=== PATIENT | female | born 1940 | race Caucasian/White ===

== ENCOUNTER 2016-11-15 12:47 | Emergency (ER) | payer OTHER ==
[~2016-11-15 12:47] MED LIST: AMLODIPINE5 MG PO; APAP/HYDROCODON1 T13 PO; APR25 PO; BAY PO; BG MC; CARVEDILOL12.5 MG PO; CARVEDILOL25 M1 PO; COL100 PO; COREG12.5 MG PO; COUMADIN2 MG PO; FERL PO; FLUOXETINE10 MG PO; HEP5I SC; LANTI SQ; LEVEMIR100 U/M1 SQ; NEP PO; NEPHRO-VITE1 TA1 PO; NEU300 PO; NIT0.4 SL; NOR5 PO; PRI20 PO; PROZ10 PO; PROZ20 PO; RENVELA800 MG PO; SIMVASTATIN40 MG PO; SORBITRATE PO; THERAGRAN-M1 TA4 PO; WARFARIN SODIUM5 MG PO; WARFARIN4 M1 PO; ZES10 PO; ZOFI IV
[2016-11-15 15:07] LABS: BASOPHIL % 1.7 % (0-2); PLATELET COUNT 256 x10^3mcL (130-400)
[2016-11-15 15:10] LABS: RED CELL DISTRIBUTION WIDTH 16.4 % (11.5-14.5)
[2016-11-15 15:27] LABS: ALKALINE PHOSPHATASE 111 U/L (46-116); ALT/SGPT 12 U/L (14-59); AST/SGOT 12 U/L (15-37); BILIRUBIN TOTAL 0.4 mg/dL (0.20-1.00); CALCIUM 8.4 mg/dL (8.5-10.1); CARBON DIOXIDE 33.3 mmol/L (21-32); CHLORIDE SERUM 99 mmol/L (98-107); CHOLESTEROL 141 mg/dL (<200); GLUCOSE SERUM 245 mg/dL (74-106); HDL CHOLESTEROL 41 mg/dL (40-60); SODIUM SERUM 136 mmol/L (136-145); URIC ACID 4.4 mg/dL (2.6-6.0)
[2016-11-15 15:30] LABS: ALBUMIN 3.2 g/dL (3.4-5.0)
[2016-11-15 15:32] LABS: CREATININE SERUM 5.9 mg/dL (0.6-1.0); POTASSIUM SERUM 5.8 mmol/L (3.5-5.1)
[2016-11-15 17:31] LABS: CHOLESTEROL/HDL RATIO 3.7; MAGNESIUM 2.5 mg/dL (1.8-2.4)
[2016-11-15 17:41] VITALS: BP 183/87
[2016-11-15 17:42] LABS: FREE T4 1.09 ng/dL (0.76-1.46); FREE THYROXINE INDEX 2.5 ug/dL (1.4-4.5); T4(THYROXINE) 6.8 ug/dL (4.7-13.3)
[2016-11-16 14:17] LABS: T3 TOTAL 0.72 ng/mL
== END 2016-11-15 17:42 | disposition left against medical advice (07) ==
LOC: ED 12:47 → DU 16:16 → ED 17:42
PROVIDERS: Emergency Medicine; Family Medicine
DX: S09.90XA Unspecified injury of head, initial encounter (principal); R55 Syncope and collapse; E87.5 Hyperkalemia; E11.22 Type 2 diabetes mellitus with diabetic chronic kidney disease; I12.9 Hypertensive chronic kidney disease with stage 1 through stage 4 chronic kidney disease, or unspecified chronic kidney disease; N18.9 Chronic kidney disease, unspecified; Z79.899 Other long term (current) drug therapy; W22.8XXA Striking against or struck by other objects, initial encounter; Y93.89 Activity, other specified; Y99.8 Other external cause status; Y92.89 Other specified places as the place of occurrence of the external cause
CPT/HCPCS: 83880; 84439; Q0092

== ENCOUNTER 2017-04-10 09:20 | Inpatient (IN) | payer OTHER ==
[~2017-04-10] VITALS: Ht 152.4 cm; Wt 70.4 kg
[2017-04-10 10:38] LABS: BASOPHIL % 0.2 % (0-2); PLATELET COUNT 215 x10^3mcL (130-400)
[2017-04-10 10:41] LABS: RED CELL DISTRIBUTION WIDTH 15.1 % (11.5-14.5)
[2017-04-10 10:55] LABS: ALBUMIN 3.6 g/dL (3.4-5.0); ALKALINE PHOSPHATASE 100 U/L (46-116); ALT/SGPT 14 U/L (14-59); AMYLASE 49 U/L (25-115); AST/SGOT 18 U/L (15-37); BILIRUBIN TOTAL 0.4 mg/dL (0.20-1.00); CALCIUM 8.9 mg/dL (8.5-10.1); CARBON DIOXIDE 27.1 mmol/L (21-32); CHLORIDE SERUM 98 mmol/L (98-107); CHOLESTEROL 158 mg/dL (<200); GLUCOSE SERUM 234 mg/dL (74-106); HDL CHOLESTEROL 41 mg/dL (40-60); LIPASE 115 IU/L (73-393); TOTAL PROTEIN, SERUM 7.9 g/dL (6.4-8.2)
[2017-04-10] MEDS ORDERED: COU2 PO (11:23)
[2017-04-10] MEDS ORDERED: ASPIR 8181 MG PO (11:23)
[2017-04-10] MEDS ORDERED: ISOSORBIDE MONO30 MG PO (11:24)
[2017-04-10] MEDS ORDERED: CARVEDILOL6.25 M1 PO (11:24)
[2017-04-10] MEDS ORDERED: FLUOXETINE HYDR20 M2 PO (11:24)
[2017-04-10] MEDS ORDERED: HUMULIN R100 U/1 M1 (11:25)
[2017-04-10] MEDS ORDERED: NITROSTAT0.4 MG SL (11:25)
[2017-04-10] MEDS ORDERED: EPZICOM1 TAB (11:25)
[2017-04-10 11:49] LABS: SODIUM SERUM 129 mmol/L (136-145)
[2017-04-10 11:50] LABS: CREATININE SERUM 6.4 mg/dL (0.6-1.0); POTASSIUM SERUM 8.4 mmol/L (3.5-5.1)
[2017-04-10 12:52] LABS: T3 TOTAL 0.69 ng/mL
[2017-04-10 13:18] LABS: CHOLESTEROL/HDL RATIO 3.7; MAGNESIUM 2.9 mg/dL (1.8-2.4); PHOSPHOROUS 3.1 mg/dL (2.5-4.9)
[2017-04-10 13:40] LABS: FREE T4 1.03 ng/dL (0.76-1.46); FREE THYROXINE INDEX 2.6 ug/dL (1.4-4.5); T4(THYROXINE) 6.9 ug/dL (4.7-13.3)
[2017-04-10 13:56] VITALS: BP 215/83
[2017-04-10 14:09] LABS: CALCIUM 9.7 mg/dL (8.5-10.1); CARBON DIOXIDE 30.1 mmol/L (21-32); CHLORIDE SERUM 100 mmol/L (98-107); GLUCOSE SERUM 165 mg/dL (74-106); SODIUM SERUM 134 mmol/L (136-145)
[2017-04-10 14:16] LABS: CREATININE SERUM 6.5 mg/dL (0.6-1.0); POTASSIUM SERUM 7.5 mmol/L (3.5-5.1)
[2017-04-10 14:25] VITALS: BP 91/47
[2017-04-10 14:50] VITALS: BP 198/85
[2017-04-10 18:00] VITALS: BP 162/64
[2017-04-10 19:06] LABS: CALCIUM 8.8 mg/dL (8.5-10.1); CHLORIDE SERUM 104 mmol/L (98-107); CREATININE SERUM 3.6 mg/dL (0.6-1.0); GLUCOSE SERUM 144 mg/dL (74-106); POTASSIUM SERUM 4.1 mmol/L (3.5-5.1); SODIUM SERUM 141 mmol/L (136-145)
[2017-04-10 21:43] VITALS: BP 145/56
[2017-04-11 02:49] LABS: CALCIUM 8.5 mg/dL (8.5-10.1); CARBON DIOXIDE 31.9 mmol/L (21-32); CHLORIDE SERUM 104 mmol/L (98-107); GLUCOSE SERUM 141 mg/dL (74-106); MAGNESIUM 2.1 mg/dL (1.8-2.4); PHOSPHOROUS 3.6 mg/dL (2.5-4.9); POTASSIUM SERUM 4.6 mmol/L (3.5-5.1); SODIUM SERUM 139 mmol/L (136-145)
[2017-04-11 02:52] LABS: CREATININE SERUM 4.5 mg/dL (0.6-1.0)
[2017-04-11 02:55] LABS: BASOPHIL % 0.9 % (0-2); PLATELET COUNT 209 x10^3mcL (130-400); RED CELL DISTRIBUTION WIDTH 14.2 % (11.5-14.5)
[2017-04-11 06:06] VITALS: BP 141/62
[2017-04-11 06:10] VITALS: BP 149/55
[2017-04-11 09:02] VITALS: BP 169/61
[2017-04-11 15:44] VITALS: BP 140/69
[2017-04-11 17:14] VITALS: BP 146/54
[2017-04-11 22:00] VITALS: BP 139/54
[2017-04-12 06:24] VITALS: BP 161/68
[2017-04-12 07:25] LABS: CALCIUM 8.2 mg/dL (8.5-10.1); CARBON DIOXIDE 31.8 mmol/L (21-32); CHLORIDE SERUM 102 mmol/L (98-107); GLUCOSE SERUM 131 mg/dL (74-106); MAGNESIUM 2.2 mg/dL (1.8-2.4); PHOSPHOROUS 4.2 mg/dL (2.5-4.9); POTASSIUM SERUM 4.1 mmol/L (3.5-5.1); SODIUM SERUM 139 mmol/L (136-145)
[2017-04-12 07:33] LABS: CREATININE SERUM 6.1 mg/dL (0.6-1.0)
[2017-04-12 07:39] LABS: BASOPHIL % 0.6 % (0-2); PLATELET COUNT 200 x10^3mcL (130-400); RED CELL DISTRIBUTION WIDTH 14.9 % (11.5-14.5)
[2017-04-12 09:03] VITALS: BP 155/53
[2017-04-12 10:32] VITALS: BP 155/53
[2017-04-12] MEDS ORDERED: COUMADIN5 MG PO ×2 (10:49→10:52)
[2017-04-12] MEDS ORDERED: SIMVASTATIN40 M1 PO (10:57)
[2017-04-12] MEDS ORDERED: ISOSORBIDE MONO30 MG PO (10:59)
[2017-04-12] MEDS ORDERED: RENVELA800 M1 PO (11:01)
[2017-04-12 12:43] VITALS: BP 150/75
== END 2017-04-12 17:55 | disposition home or self-care (01) | DRG 640 ==
LOC: ED 09:20 → DU 11:37
PROVIDERS: Emergency Medicine; ADMIT Family Medicine
DX: E87.5 Hyperkalemia (principal); N18.6 End stage renal disease; I50.43 Acute on chronic combined systolic (congestive) and diastolic (congestive) heart failure; N17.0 Acute kidney failure with tubular necrosis; I13.2 Hypertensive heart and chronic kidney disease with heart failure and with stage 5 chronic kidney disease, or end stage renal disease; E87.1 Hypo-osmolality and hyponatremia; E11.65 Type 2 diabetes mellitus with hyperglycemia; E11.51 Type 2 diabetes mellitus with diabetic peripheral angiopathy without gangrene; I16.0 Hypertensive urgency; F32.9 Major depressive disorder, single episode, unspecified; Z86.718 Personal history of other venous thrombosis and embolism; Z95.1 Presence of aortocoronary bypass graft; Z99.2 Dependence on renal dialysis; Z79.4 Long term (current) use of insulin; Z79.82 Long term (current) use of aspirin; Z79.891 Long term (current) use of opiate analgesic; Z79.01 Long term (current) use of anticoagulants; Z68.27 Body mass index [BMI] 27.0-27.9, adult
CPT/HCPCS: 83880; 84439; J1815; J2405; J3490; J7030; Q0092

== ENCOUNTER 2017-05-15 10:27 | Inpatient (IN) | payer OTHER ==
[~2017-05-15] VITALS: Ht 152.4 cm; Wt 66.9 kg
[~2017-05-15 10:27] MED LIST changes: +ASPIR 8181 MG PO; +CARVEDILOL6.25 M1 PO; +COU2 PO; +COUMADIN5 MG PO; +EPZICOM1 TAB; +FLUOXETINE HYDR20 M2 PO; +HUMULIN R100 U/1 M1; +ISOSORBIDE MONO30 MG PO; +NITROSTAT0.4 MG SL; +RENVELA800 M1 PO; +SIMVASTATIN40 M1 PO
[2017-05-15 11:05] LABS: BASOPHIL % 0.5 % (0-2); PLATELET COUNT 226 x10^3mcL (130-400)
[2017-05-15 11:06] LABS: RED CELL DISTRIBUTION WIDTH 15.3 % (11.5-14.5)
[2017-05-15 11:30] LABS: FREE T4 1.38 ng/dL (0.76-1.46); FREE THYROXINE INDEX 3.3 ug/dL (1.4-4.5); T4(THYROXINE) 8.2 ug/dL (4.7-13.3)
[2017-05-15 11:31] LABS: T3 TOTAL 0.64 ng/mL
[2017-05-15 11:35] LABS: ALBUMIN 3.9 g/dL (3.4-5.0); ALKALINE PHOSPHATASE 84 U/L (46-116); ALT/SGPT 14 U/L (14-59); AST/SGOT 16 U/L (15-37); CARBON DIOXIDE 28.1 mmol/L (21-32); CHLORIDE SERUM 96 mmol/L (98-107); GLUCOSE SERUM 209 mg/dL (74-106); POTASSIUM SERUM 4.4 mmol/L (3.5-5.1); SODIUM SERUM 134 mmol/L (136-145)
[2017-05-15 11:39] LABS: C REACTIVE PROTEIN < 0.2 mg/dL (<=0.9); CREATININE SERUM 6.9 mg/dL (0.6-1.0)
[2017-05-15 13:30] LABS: ERYTHROCYTE SED RATE 11 mm/hr (0-30)
[2017-05-15 14:30] VITALS: BP 147/64
[2017-05-15 14:34] VITALS: BP 147/64
[2017-05-15 14:42] VITALS: Ht 152.4 cm; Wt 66.9 kg
[2017-05-15 15:04] LABS: MAGNESIUM 2.4 mg/dL (1.8-2.4); PHOSPHOROUS 3.6 mg/dL (2.5-4.9)
[2017-05-15 17:01] VITALS: BP 203/97
[2017-05-15 17:38] VITALS: BP 206/89
[2017-05-15 19:00] VITALS: BP 159/72
[2017-05-15 21:09] VITALS: BP 161/54
[2017-05-16 05:14] VITALS: BP 134/56
[2017-05-16 06:13] LABS: CALCIUM 9.2 mg/dL (8.5-10.1); CHLORIDE SERUM 98 mmol/L (98-107); GLUCOSE SERUM 165 mg/dL (74-106); POTASSIUM SERUM 4.1 mmol/L (3.5-5.1); SODIUM SERUM 138 mmol/L (136-145)
[2017-05-16 06:19] LABS: BASOPHIL % 0.3 % (0-2); PLATELET COUNT 203 x10^3mcL (130-400)
[2017-05-16 06:39] LABS: CREATININE SERUM 4.4 mg/dL (0.6-1.0)
[2017-05-16 09:35] VITALS: BP 136/60
[2017-05-16 13:22] VITALS: BP 132/66
[2017-05-16 17:07] VITALS: BP 177/70
[2017-05-16 17:25] VITALS: BP 177/70
[2017-05-16 21:44] VITALS: BP 173/59
[2017-05-17] VITALS (7 sets, daily range): BP systolic 106–166; BP diastolic 53–78
[2017-05-17 06:16] LABS: CALCIUM 8.8 mg/dL (8.5-10.1); CARBON DIOXIDE 31.4 mmol/L (21-32); CHLORIDE SERUM 96 mmol/L (98-107); GLUCOSE SERUM 197 mg/dL (74-106); MAGNESIUM 2.4 mg/dL (1.8-2.4); PHOSPHOROUS 3.4 mg/dL (2.5-4.9); POTASSIUM SERUM 3.6 mmol/L (3.5-5.1); SODIUM SERUM 135 mmol/L (136-145)
[2017-05-17 06:29] LABS: CREATININE SERUM 6.2 mg/dL (0.6-1.0)
[2017-05-17 06:42] LABS: BASOPHIL % 0.6 % (0-2); PLATELET COUNT 185 x10^3mcL (130-400)
[2017-05-17 06:45] LABS: RED CELL DISTRIBUTION WIDTH 15.8 % (11.5-14.5)
[2017-05-17] MEDS ORDERED: ZES20 PO (16:51)
[2017-05-17] MEDS ORDERED: HYDRALAZINE HCL25 MG PO (16:53)
== END 2017-05-17 19:16 | disposition home or self-care (01) | DRG 205 ==
LOC: ED 10:27 → DU 12:10
PROVIDERS: Specialist; ADMIT Family Medicine
DX: M94.0 Chondrocostal junction syndrome [Tietze] (principal); N18.6 End stage renal disease; I50.43 Acute on chronic combined systolic (congestive) and diastolic (congestive) heart failure; D68.69 Other thrombophilia; I13.2 Hypertensive heart and chronic kidney disease with heart failure and with stage 5 chronic kidney disease, or end stage renal disease; E11.65 Type 2 diabetes mellitus with hyperglycemia; E11.51 Type 2 diabetes mellitus with diabetic peripheral angiopathy without gangrene; E11.42 Type 2 diabetes mellitus with diabetic polyneuropathy; E83.39 Other disorders of phosphorus metabolism; F32.9 Major depressive disorder, single episode, unspecified; I25.2 Old myocardial infarction; Z99.2 Dependence on renal dialysis; Z79.4 Long term (current) use of insulin; Z68.29 Body mass index [BMI] 29.0-29.9, adult; Z95.1 Presence of aortocoronary bypass graft; Z86.74 Personal history of sudden cardiac arrest; Z79.01 Long term (current) use of anticoagulants; Z86.718 Personal history of other venous thrombosis and embolism; I25.10 Atherosclerotic heart disease of native coronary artery without angina pectoris
CPT/HCPCS: 36600; 83880; 84439; 94150; J0360; J1815; J2405; J3490; Q0092

== ENCOUNTER 2017-09-10 07:11 | Inpatient (IN) | payer OTHER ==
[~2017-09-10] VITALS: Ht 154.9 cm; Wt 65.8 kg
[~2017-09-10 07:11] MED LIST changes: -COU2 PO; +HYDRALAZINE HCL25 MG PO; -PROZ20 PO; +ZES20 PO
[2017-09-10 08:43] LABS: BASOPHIL % 0.3 % (0-2); PLATELET COUNT 207 x10^3mcL (130-400); RED CELL DISTRIBUTION WIDTH 14.5 % (11.5-14.5)
[2017-09-10 08:59] LABS: ALKALINE PHOSPHATASE 104 U/L (46-116); ALT/SGPT 13 U/L (14-59); AST/SGOT 25 U/L (15-37); BILIRUBIN TOTAL 0.48 mg/dL (0.20-1.00); CALCIUM 8.6 mg/dL (8.5-10.1); CARBON DIOXIDE 28.8 mmol/L (21-32); CHLORIDE SERUM 97 mmol/L (98-107); GLUCOSE SERUM 178 mg/dL (74-106); HDL CHOLESTEROL 48 mg/dL (40-60); SODIUM SERUM 134 mmol/L (136-145); TOTAL PROTEIN, SERUM 6.9 g/dL (6.4-8.2)
[2017-09-10 09:00] LABS: ALBUMIN 3.2 g/dL (3.4-5.0); CHOLESTEROL 120 mg/dL (<200)
[2017-09-10 09:01] LABS: CREATININE SERUM 5.3 mg/dL (0.6-1.0)
[2017-09-10] MEDS ORDERED: RANEXA500 M2 PO (09:41)
[2017-09-10] MEDS ORDERED: ISOSORBIDE MONO30 MG PO (09:42)
[2017-09-10] MEDS ORDERED: COUMADIN4 MG PO (09:43)
[2017-09-10] MEDS ORDERED: COUMADIN2 MG PO (09:43)
[2017-09-10 13:09] VITALS: BP 136/47
[2017-09-10 14:45] VITALS: BP 115/38
[2017-09-10 15:00] LABS: MAGNESIUM 2.3 mg/dL (1.8-2.4); PHOSPHOROUS 1.6 mg/dL (2.5-4.9)
[2017-09-10 15:01] LABS: CHOLESTEROL/HDL RATIO 2.5
[2017-09-10 15:50] LABS: microscopic required? YES; urine erythrocyte TRACE (NEGATIVE)
[2017-09-10 17:10] VITALS: BP 131/43
[2017-09-10 17:21] VITALS: BP 136/47
[2017-09-11 06:38] LABS: BASOPHIL % 0.2 % (0-2); PLATELET COUNT 217 x10^3mcL (130-400)
[2017-09-11 07:12] LABS: CALCIUM 8.5 mg/dL (8.5-10.1); CARBON DIOXIDE 28.4 mmol/L (21-32); CHLORIDE SERUM 97 mmol/L (98-107); GLUCOSE SERUM 141 mg/dL (74-106); MAGNESIUM 2.5 mg/dL (1.8-2.4); PHOSPHOROUS 2.2 mg/dL (2.5-4.9); SODIUM SERUM 135 mmol/L (136-145)
[2017-09-11 07:19] LABS: CREATININE SERUM 6.8 mg/dL (0.6-1.0); POTASSIUM SERUM 6.4 mmol/L (3.5-5.1)
[2017-09-11 09:32] VITALS: BP 157/47
[2017-09-11 18:04] VITALS: BP 115/43
[2017-09-11 20:54] VITALS: BP 137/44
[2017-09-12 04:37] VITALS: BP 142/46
[2017-09-12 05:49] VITALS: BP 181/68
[2017-09-12 06:56] LABS: CALCIUM 8.8 mg/dL (8.5-10.1); CARBON DIOXIDE 30.4 mmol/L (21-32); CHLORIDE SERUM 97 mmol/L (98-107); GLUCOSE SERUM 123 mg/dL (74-106); MAGNESIUM 2.1 mg/dL (1.8-2.4); PHOSPHOROUS 2.5 mg/dL (2.5-4.9); POTASSIUM SERUM 4.9 mmol/L (3.5-5.1); SODIUM SERUM 136 mmol/L (136-145)
[2017-09-12 07:00] LABS: BASOPHIL % 0.5 % (0-2); PLATELET COUNT 222 x10^3mcL (130-400)
[2017-09-12 07:01] LABS: RED CELL DISTRIBUTION WIDTH 15.1 % (11.5-14.5)
[2017-09-12 07:24] LABS: CREATININE SERUM 4.8 mg/dL (0.6-1.0)
[2017-09-12 09:11] VITALS: BP 138/57
[2017-09-12] MEDS ORDERED: NOR10 PO (10:14)
[2017-09-12] MEDS ORDERED: LEVAQUIN500 M1 PO (10:23)
[2017-09-12] MEDS ORDERED: LAC PO (10:23)
[2017-09-12 12:16] VITALS: BP 138/51
[2017-09-12] MEDS ORDERED: COU2 PO (12:22)
[2017-09-12] MEDS ORDERED: PROZ20 PO (12:22)
[2017-09-12 13:30] VITALS: BP 181/75
== END 2017-09-12 14:16 | disposition home or self-care (01) | DRG 73 ==
LOC: ED 07:11 → DU 10:19
PROVIDERS: Emergency Medicine; Family Medicine; Student in an Organized Health Care Education/Training Program
DX: G90.8 Other disorders of autonomic nervous system (principal); N17.0 Acute kidney failure with tubular necrosis; N18.6 End stage renal disease; I50.43 Acute on chronic combined systolic (congestive) and diastolic (congestive) heart failure; I13.2 Hypertensive heart and chronic kidney disease with heart failure and with stage 5 chronic kidney disease, or end stage renal disease; N39.0 Urinary tract infection, site not specified; E44.0 Moderate protein-calorie malnutrition; R55 Syncope and collapse; T44.7X5A Adverse effect of beta-adrenoreceptor antagonists, initial encounter; E11.65 Type 2 diabetes mellitus with hyperglycemia; E11.22 Type 2 diabetes mellitus with diabetic chronic kidney disease; E11.51 Type 2 diabetes mellitus with diabetic peripheral angiopathy without gangrene; E11.42 Type 2 diabetes mellitus with diabetic polyneuropathy; M16.12 Unilateral primary osteoarthritis, left hip; F32.9 Major depressive disorder, single episode, unspecified; E78.5 Hyperlipidemia, unspecified; I25.10 Atherosclerotic heart disease of native coronary artery without angina pectoris; I25.2 Old myocardial infarction; Z86.74 Personal history of sudden cardiac arrest; Z95.1 Presence of aortocoronary bypass graft; Z86.718 Personal history of other venous thrombosis and embolism; Z86.711 Personal history of pulmonary embolism; Z79.01 Long term (current) use of anticoagulants; Z79.82 Long term (current) use of aspirin; Z83.3 Family history of diabetes mellitus; Z82.49 Family history of ischemic heart disease and other diseases of the circulatory system; Z68.27 Body mass index [BMI] 27.0-27.9, adult; Y92.002 Bathroom of unspecified non-institutional (private) residence as the place of occurrence of the external cause
CPT/HCPCS: 83880; 87804; J0696; J1956; J3490; J7030; Q0092

== ENCOUNTER 2017-11-01 22:12 | Inpatient (IN) | payer OTHER ==
[~2017-11-01] VITALS: Ht 154.9 cm; Wt 65.0 kg
[~2017-11-01 22:12] MED LIST changes: +COU2 PO; +COUMADIN4 MG PO; +LAC PO; +LEVAQUIN500 M1 PO; +NOR10 PO; +PROZ20 PO; +RANEXA500 M2 PO
[2017-11-01 23:22] LABS: BASOPHIL % 0.3 % (0-2); PLATELET COUNT 184 x10^3mcL (130-400); RED CELL DISTRIBUTION WIDTH 13.8 % (11.5-14.5)
[2017-11-01 23:34] LABS: CALCIUM 8.6 mg/dL (8.5-10.1); CARBON DIOXIDE 28.5 mmol/L (21-32); CHLORIDE SERUM 100 mmol/L (98-107); CREATININE SERUM 3.3 mg/dL (0.6-1.0); GLUCOSE SERUM 142 mg/dL (74-106); SODIUM SERUM 137 mmol/L (136-145)
[2017-11-01 23:39] LABS: ALKALINE PHOSPHATASE 133 U/L (46-116); ALT/SGPT 17 U/L (14-59); AST/SGOT 19 U/L (15-37); BILIRUBIN TOTAL 0.5 mg/dL (0.20-1.00); TOTAL PROTEIN, SERUM 7.1 g/dL (6.4-8.2)
[2017-11-01 23:42] LABS: ALBUMIN 3.2 g/dL (3.4-5.0)
[2017-11-02 00:06] LABS: CK-MB < 0.5 ng/mL (0-3.6); CREATINE KINASE 124 U/L (26-192)
[2017-11-02 01:36] VITALS: BP 177/72
[2017-11-02 01:42] VITALS: Ht 154.9 cm; Wt 65.0 kg
[2017-11-02 01:59] LABS: MAGNESIUM 2.3 mg/dL (1.8-2.4)
[2017-11-02 02:07] LABS: FREE T4 1.04 ng/dL (0.76-1.46); FREE THYROXINE INDEX 2.1 ug/dL (1.4-4.5); T4(THYROXINE) 6.1 ug/dL (4.7-13.3)
[2017-11-02 02:11] LABS: T3 TOTAL 0.61 ng/mL
[2017-11-02 02:18] LABS: CHOLESTEROL/HDL RATIO 2.5
[2017-11-02 06:21] VITALS: BP 146/56
[2017-11-02 08:51] VITALS: BP 150/22
[2017-11-02 09:34] LABS: UA SPECIFIC GRAVITY 1.015 (1.005-1.035); microscopic required? YES; urine erythrocyte 1+ (NEGATIVE)
[2017-11-02 10:19] LABS: AMPHETAMINE QUAL UR NONE DETECTED (NEG <=1000)
[2017-11-02 13:00] VITALS: BP 123/55
== END 2017-11-02 16:41 | disposition left against medical advice (07) | DRG 73 ==
LOC: ED 22:12 → DU 11-02 00:44
PROVIDERS: Emergency Medicine; Family Medicine
DX: G90.9 Disorder of the autonomic nervous system, unspecified (principal); I50.43 Acute on chronic combined systolic (congestive) and diastolic (congestive) heart failure; N18.6 End stage renal disease; N17.0 Acute kidney failure with tubular necrosis; B37.49 Other urogenital candidiasis; I11.0 Hypertensive heart disease with heart failure; S02.5XXA Fracture of tooth (traumatic), initial encounter for closed fracture; S80.02XA Contusion of left knee, initial encounter; S93.402A Sprain of unspecified ligament of left ankle, initial encounter; R55 Syncope and collapse; E11.65 Type 2 diabetes mellitus with hyperglycemia; E11.51 Type 2 diabetes mellitus with diabetic peripheral angiopathy without gangrene; E11.42 Type 2 diabetes mellitus with diabetic polyneuropathy; D63.8 Anemia in other chronic diseases classified elsewhere; F32.9 Major depressive disorder, single episode, unspecified; I25.2 Old myocardial infarction; Z99.2 Dependence on renal dialysis; Z86.74 Personal history of sudden cardiac arrest; Z86.718 Personal history of other venous thrombosis and embolism; Z79.01 Long term (current) use of anticoagulants; Z79.82 Long term (current) use of aspirin; Z91.81 History of falling; W01.0XXA Fall on same level from slipping, tripping and stumbling without subsequent striking against object, initial encounter; Y92.008 Other place in unspecified non-institutional (private) residence as the place of occurrence of the external cause
CPT/HCPCS: 83880; 84439; 87804; 97110-GP; J2001; J3010; J7030; J8597; Q0092

== ENCOUNTER 2018-01-08 07:58 | Inpatient (IN) | payer OTHER ==
[~2018-01-08] VITALS: Ht 157.5 cm; Wt 73.5 kg
[2018-01-08 08:04] VITALS: Ht 157.5 cm; Wt 73.5 kg
[2018-01-08 09:02] LABS: ALBUMIN 3.6 g/dL (3.4-5.0); ALKALINE PHOSPHATASE 152 U/L (46-116); ALT/SGPT 11 U/L (14-59); AST/SGOT 15 U/L (15-37); BILIRUBIN TOTAL 0.49 mg/dL (0.20-1.00); CALCIUM 8.5 mg/dL (8.5-10.1); CARBON DIOXIDE 25.9 mmol/L (21-32); CHLORIDE SERUM 98 mmol/L (98-107); CHOLESTEROL 155 mg/dL (<200); CHOLESTEROL/HDL RATIO 3.3; GLUCOSE SERUM 159 mg/dL (74-106); HDL CHOLESTEROL 47 mg/dL (40-60); LIPASE 124 IU/L (73-393); SODIUM SERUM 132 mmol/L (136-145); TOTAL PROTEIN, SERUM 8.2 g/dL (6.4-8.2)
[2018-01-08 09:04] LABS: TRIGLYCERIDES 244 mg/dL (<150)
[2018-01-08 09:06] LABS: BASOPHIL % 0.3 % (0-2); PLATELET COUNT 256 x10^3mcL (130-400)
[2018-01-08 09:08] LABS: CREATININE SERUM 6.7 mg/dL (0.6-1.0)
[2018-01-08 09:09] LABS: RED CELL DISTRIBUTION WIDTH 15.3 % (11.5-14.5)
[2018-01-08 09:14] LABS: T3 TOTAL 0.84 ng/mL
[2018-01-08 09:15] LABS: FREE T4 0.97 ng/dL (0.76-1.46); FREE THYROXINE INDEX 2.2 ug/dL (1.4-4.5); T4(THYROXINE) 6.4 ug/dL (4.7-13.3)
[2018-01-08 09:50] LABS: POTASSIUM SERUM 7.6 mmol/L (3.5-5.1)
[2018-01-08 12:41] VITALS: BP 189/69
[2018-01-08 13:13] LABS: MAGNESIUM 3.2 mg/dL (1.8-2.4); PHOSPHOROUS 2.3 mg/dL (2.5-4.9)
[2018-01-08 18:44] LABS: UA SPECIFIC GRAVITY 1.015 (1.005-1.035); microscopic required? YES; urine erythrocyte 1+ (NEGATIVE)
[2018-01-08 20:59] VITALS: BP 169/76
[2018-01-08 21:30] VITALS: BP 166/63
[2018-01-08 21:48] LABS: CALCIUM 8.7 mg/dL (8.5-10.1); CARBON DIOXIDE 31.2 mmol/L (21-32); CHLORIDE SERUM 101 mmol/L (98-107); CREATININE SERUM 2.8 mg/dL (0.6-1.0); GLUCOSE SERUM 170 mg/dL (74-106); POTASSIUM SERUM 3.4 mmol/L (3.5-5.1); SODIUM SERUM 138 mmol/L (136-145)
[2018-01-09 00:03] VITALS: BP 166/63
[2018-01-09 00:35] VITALS: BP 141/49
[2018-01-09 06:08] VITALS: BP 159/68
[2018-01-09 06:42] LABS: BASOPHIL % 0.7 % (0-2); PLATELET COUNT 221 x10^3mcL (130-400)
[2018-01-09 06:44] LABS: RED CELL DISTRIBUTION WIDTH 15.1 % (11.5-14.5)
[2018-01-09 07:30] LABS: CALCIUM 7.9 mg/dL (8.5-10.1); CARBON DIOXIDE 32.5 mmol/L (21-32); CHLORIDE SERUM 102 mmol/L (98-107); GLUCOSE SERUM 104 mg/dL (74-106); MAGNESIUM 2.2 mg/dL (1.8-2.4); PHOSPHOROUS 2.8 mg/dL (2.5-4.9); POTASSIUM SERUM 4.3 mmol/L (3.5-5.1); SODIUM SERUM 140 mmol/L (136-145)
[2018-01-09 10:05] VITALS: BP 148/58
[2018-01-09 12:58] VITALS: BP 148/58
[2018-01-09 14:14] VITALS: BP 157/59
== END 2018-01-09 14:47 | disposition home or self-care (01) | DRG 291 ==
LOC: ED 07:58 → DU 10:21
PROVIDERS: Family Medicine; Specialist
DX: I13.2 Hypertensive heart and chronic kidney disease with heart failure and with stage 5 chronic kidney disease, or end stage renal disease (principal); N18.6 End stage renal disease; I50.43 Acute on chronic combined systolic (congestive) and diastolic (congestive) heart failure; N17.0 Acute kidney failure with tubular necrosis; N39.0 Urinary tract infection, site not specified; E87.1 Hypo-osmolality and hyponatremia; E87.8 Other disorders of electrolyte and fluid balance, not elsewhere classified; F32.9 Major depressive disorder, single episode, unspecified; E11.22 Type 2 diabetes mellitus with diabetic chronic kidney disease; E87.5 Hyperkalemia; E83.41 Hypermagnesemia; E11.65 Type 2 diabetes mellitus with hyperglycemia; E83.39 Other disorders of phosphorus metabolism; I25.2 Old myocardial infarction; Z99.2 Dependence on renal dialysis; Z68.26 Body mass index [BMI] 26.0-26.9, adult; Z95.1 Presence of aortocoronary bypass graft; Z79.01 Long term (current) use of anticoagulants; Z86.718 Personal history of other venous thrombosis and embolism; I25.10 Atherosclerotic heart disease of native coronary artery without angina pectoris
CPT/HCPCS: 36600; 83880; 84439; 97110-GP; J0360; J0696; J0885-EC; J1815; J3490; J7030; Q0092

== ENCOUNTER 2018-05-21 08:43 | Inpatient (IN) | payer OTHER ==
[~2018-05-21] VITALS: Ht 162.6 cm; Wt 65.8 kg
[2018-05-21 08:44] VITALS: Ht 162.6 cm; Wt 65.8 kg
[2018-05-21 10:44] LABS: ALBUMIN 3.6 g/dL (3.4-5.0); ALKALINE PHOSPHATASE 155 U/L (46-116); ALT/SGPT 17 U/L (14-59); AMYLASE 41 U/L (25-115); AST/SGOT 22 U/L (15-37); BILIRUBIN TOTAL 0.5 mg/dL (0.20-1.00); CALCIUM 8.8 mg/dL (8.5-10.1); CARBON DIOXIDE 25.1 mmol/L (21-32); CHLORIDE SERUM 98 mmol/L (98-107); CHOLESTEROL 130 mg/dL (<200); GLUCOSE SERUM 177 mg/dL (74-106); HDL CHOLESTEROL 45 mg/dL (40-60); LIPASE 108 IU/L (73-393); SODIUM SERUM 130 mmol/L (136-145); T4(THYROXINE) 5.8 ug/dL (4.7-13.3); TOTAL PROTEIN, SERUM 7.7 g/dL (6.4-8.2)
[2018-05-21 10:46] LABS: CREATININE SERUM 7.5 mg/dL (0.6-1.0); POTASSIUM SERUM 6.7 mmol/L (3.5-5.1)
[2018-05-21 11:16] LABS: BASOPHIL % 0.4 % (0-2); PLATELET COUNT 224 x10^3mcL (130-400); RED CELL DISTRIBUTION WIDTH 13.2 % (11.5-14.5)
[2018-05-21 13:05] LABS: UA SPECIFIC GRAVITY 1.025 (1.005-1.035); microscopic required? YES; urine erythrocyte 1+ (NEGATIVE)
[2018-05-21 13:16] LABS: PHOSPHOROUS 2.7 mg/dL (2.5-4.9)
[2018-05-21 13:29] LABS: AMPHETAMINE QUAL UR NONE DETECTED (See below)
[2018-05-21 13:39] VITALS: BP 176/65; BP 207/71
[2018-05-21 14:58] LABS: CARBON DIOXIDE 20.4 mmol/L (21-32); CHLORIDE SERUM 100 mmol/L (98-107); GLUCOSE SERUM 150 mg/dL (74-106); SODIUM SERUM 131 mmol/L (136-145)
[2018-05-21 15:06] LABS: POTASSIUM SERUM 6.9 mmol/L (3.5-5.1)
[2018-05-21 19:01] VITALS: BP 123/54
[2018-05-21 21:06] VITALS: BP 175/83
[2018-05-21 22:20] LABS: CARBON DIOXIDE 30.6 mmol/L (21-32); CHLORIDE SERUM 102 mmol/L (98-107); GLUCOSE SERUM 134 mg/dL (74-106); POTASSIUM SERUM 3.5 mmol/L (3.5-5.1); SODIUM SERUM 137 mmol/L (136-145)
[2018-05-21 22:31] LABS: CREATININE SERUM 4.3 mg/dL (0.6-1.0)
[2018-05-21 23:30] VITALS: BP 117/41
[2018-05-22 05:51] VITALS: BP 123/43
[2018-05-22 06:10] LABS: BASOPHIL % 0.8 % (0-2); PLATELET COUNT 231 x10^3mcL (130-400)
[2018-05-22 06:27] LABS: CALCIUM 8.4 mg/dL (8.5-10.1); CARBON DIOXIDE 29.6 mmol/L (21-32); CHLORIDE SERUM 102 mmol/L (98-107); GLUCOSE SERUM 106 mg/dL (74-106); SODIUM SERUM 139 mmol/L (136-145)
[2018-05-22 06:35] LABS: CREATININE SERUM 5.1 mg/dL (0.6-1.0); RED CELL DISTRIBUTION WIDTH 15.1 % (11.5-14.5)
[2018-05-22 09:12] VITALS: BP 143/57
[2018-05-22 13:06] VITALS: BP 143/57
[2018-05-22 13:42] VITALS: BP 112/47
== END 2018-05-22 16:16 | disposition home or self-care (01) | DRG 205 ==
LOC: ED 08:43 → DU 12:24 → MU 13:35 → DU 14:15
PROVIDERS: Emergency Medicine; Internal Medicine
DX: M94.0 Chondrocostal junction syndrome [Tietze] (principal); N18.6 End stage renal disease; N17.0 Acute kidney failure with tubular necrosis; I12.0 Hypertensive chronic kidney disease with stage 5 chronic kidney disease or end stage renal disease; E87.1 Hypo-osmolality and hyponatremia; E11.22 Type 2 diabetes mellitus with diabetic chronic kidney disease; E83.41 Hypermagnesemia; E78.00 Pure hypercholesterolemia, unspecified; R80.9 Proteinuria, unspecified; E87.79 Other fluid overload; E87.5 Hyperkalemia; D63.8 Anemia in other chronic diseases classified elsewhere; I25.10 Atherosclerotic heart disease of native coronary artery without angina pectoris; I25.2 Old myocardial infarction; Z99.2 Dependence on renal dialysis; Z79.82 Long term (current) use of aspirin; Z99.81 Dependence on supplemental oxygen; Z68.27 Body mass index [BMI] 27.0-27.9, adult; Z95.1 Presence of aortocoronary bypass graft; Z79.01 Long term (current) use of anticoagulants; Z86.718 Personal history of other venous thrombosis and embolism; Z66 Do not resuscitate
CPT/HCPCS: 82962; 83880; J1815; J2405; J3490; J7030; Q0092

== ENCOUNTER 2018-09-10 11:20 | Inpatient (IN) | payer OTHER ==
[~2018-09-10] VITALS: Ht 152.4 cm; Wt 63.7 kg
[2018-09-10 11:30] VITALS: Ht 152.4 cm; Wt 63.7 kg
--- NOTE | 2018-09-10 12:25 | NUR ---
PT C/O BEING DIZZY AND VOMITING SINCE YESTERDAY. PTS DAUGHT CAME TO PICK HER UP TO GO TO DIALYSIS THIS MORNING AND HER MOTHER WAS STILL IN BED. USUALLY WHEN THE DAUGHTER PICKS HER UP SHE IS READY TO GO AND IS ABLE TO DRESS HERSLEF. DAUGHTER DECIDED TO CRYSTAL HER IN SINCE SHE WAS TOO WEAK TO GET DRESSED AND THIS IS NOT HER "NORMAL". PT HAS BEEN VOMITING 4X. VSS. DAUGHTER AT BEDSIDE. RESP E/U. CALL LIGHT IN REACH. WILL CONTINUE TO MONITOR.
[2018-09-10 12:30] LABS: BASOPHIL % 1.6 % (0-2); PLATELET COUNT 255 x10^3mcL (130-400); RED CELL DISTRIBUTION WIDTH 14.4 % (11.5-14.5)
--- NOTE | 2018-09-10 12:33 | NUR ---
MEDICATED ORDERED. PLEASE SEE EMR.
[2018-09-10 12:38] LABS: ALBUMIN 3.7 g/dL (3.4-5.0); ALKALINE PHOSPHATASE 175 U/L (46-116); ALT/SGPT 13 U/L (14-59); AST/SGOT 17 U/L (15-37); BILIRUBIN TOTAL 0.41 mg/dL (0.20-1.00); CALCIUM 8.3 mg/dL (8.5-10.1); CARBON DIOXIDE 25.3 mmol/L (21-32); CHLORIDE SERUM 96 mmol/L (98-107); CHOLESTEROL 151 mg/dL (<200); GLUCOSE SERUM 178 mg/dL (74-106); HDL CHOLESTEROL 46 mg/dL (40-60); SODIUM SERUM 132 mmol/L (136-145); TOTAL PROTEIN, SERUM 8.2 g/dL (6.4-8.2)
[2018-09-10 12:56] LABS: CREATININE SERUM 8.8 mg/dL (0.6-1.0)
[2018-09-10 14:20] LABS: CHOLESTEROL/HDL RATIO 3.4; MAGNESIUM 2.6 mg/dL (1.8-2.4); PHOSPHOROUS 3.2 mg/dL (2.5-4.9)
--- NOTE | 2018-09-10 14:28 | NUR ---
PT IN POSITION OF COMFORT. NO DISTRESS NOTED. RESP E/U. VSS. WILL CONTINUE TO MONITOR.
--- NOTE | 2018-09-10 14:39 | NUR ---
GAVE REPORT TO RACHEL.
--- NOTE | 2018-09-10 14:51 | NUR ---
RECEIVED PT VIA [facility] FROM E/D, ACCOMPANIED BY RN AND TRANSPORTER. PT A/A/O X 4, COOPERATIVE, CURRENTLY ANXIOUS D/T EPISODES OF VOMITING (ORANGE, NO SOLIDS NOTED). ON TELE # 8, SR W/ 1ST DEG AVB, DENIES CHEST PAIN OR DISCOMFORT AT THIS TIME. NO RESPIRATORY DISTRESS NOTED. ABD SOFT, ROUND, NON-TENDER, HYPERACTIVE BOWEL SOUNDS X 4 QUADS, TYMPANY UPON PERCUSSION TO LUQ, LAST BM 09/09/18, DIARRHEA; PT STATES THAT SHE HAS DIFFICULTY SWALLOWING SOLID FOODS UNLESS EATEN WITH SOUP. ANURIC, LAV FISTULA +THRILL/BRUIT, LAST DIALYSIS 09/07/18 (DIALYSIS MWF). GENERALIZED WEAKNESS, REPORTS MULTIPLE FALLS THE LAST COUPLE MONTHS. IV SITE RH CDI. ORIENTED PT TO ROOM, BED CONTROLS, CALL LIGHT SYSTEM. SIDE RAILS UP X 2, BED IN LOW POSITION. WILL ENDORSE TO GINA RAMSO.
--- NOTE | 2018-09-10 14:52 | NUR ---
PT IS VOMITING. PAGED TO INFORM. PT RECEIVED ZOFRAN IN ER RECENTLY. SEWING MACHINE TESTER AND ADMITING RN AT BEDSIDE.
--- NOTE | 2018-09-10 15:00 | NUR ---
PT IS NOT VOMITING ANY MORE. RESTING IN BED.
[2018-09-10 15:42] VITALS: BP 159/65
--- NOTE | 2018-09-10 16:15 | NUR ---
CAME, CHECKED LABS AND SPOKE WITH PT AND PUT ORDER FOR HD AND HE SPOKE WITH HD NURSE IN [place] AND THEY SAID THEY WILL COME SOON.
--- NOTE | 2018-09-10 16:30 | NUR ---
INFORMED ABOUT PT CHANGE HER DECISION ABOUT CODE STATUS, SHE WANT TO THINK ABOUT ABOUT HER CODE STATUS. SHE MAY WANT TO BE FULL CODE. PT'S SISTER AT BEDSIDE TRANSLATING WITH PT AND ALSO ARABIC SPEAKING RN AT BEDSIDE. CHARGE NURSE AWARE. SAID HE WILL SPEAK WITH PT. AWARE PT K=7, MG=2.6, DBD=444.25, BUN/CREAT=55/8.8 AND ALL OTHER ABNORMAL LABS. INFORMED ABOUT PT'S RHYTHM FIRSTDEGREE AV BLOCK. ALSO INFORMED HIM PT REQUESTING FOR SOFT FOOD BECAUSE SHE HAS TRUOBLE SWALLOWING REGULAR FOOD. HE SAID HE WILL SEE THE PT FIRST.
[2018-09-10 16:58] VITALS: BP 159/59
--- NOTE | 2018-09-10 18:30 | NUR ---
HD NURSE CAME AND STARTING HD SOON. PT IS STABLE. NO NAUSEA/VOMITING THIS TIME.
--- NOTE | 2018-09-10 19:20 | NUR ---
PT RESTING IN BED COMFORTABLY. DENIES PAIN. NO NAUSEA/VOMITING. ON HD NOW. STABLE. GAVE REPORT TO MACHINE SHORTHAND TEACHER NURSE.
--- NOTE | 2018-09-10 19:25 | NUR ---
RECEIVED PT IN BED AWAKE, ALERT, ORIENTED X4. HEMODIALYSIS IN PROGRESS . NO SOB NOTED ON ROOM AIR. BOWEL SOUDS ACTIVE. SHE HAS NO C/O ABDL DISCOMFORT. PER DIALYSIS NURSE PT JUST HAD A BOWEL MOVEMENT. PT HAS NO C/O PAIN AT THIS TIME. W/ HL TO RT HAND INTACT. CALL LIGHT W/IN REACH.
--- NOTE | 2018-09-10 21:20 | NUR ---
HEMODIALYSIS COMPLETED W/ 3L OUT. PT IN STABLE CONDITION.
[2018-09-10 21:49] VITALS: BP 153/71
--- NOTE | 2018-09-11 02:30 | NUR ---
PT APPEARS TO BE SLEEPING COMFORTABLY. RESP. EVEN AND UNLABORED.
--- NOTE | 2018-09-11 05:16 | NUR ---
PT HAD A RESTFUL NIGHT. SHE HAD NO C/O PAIN . NO EPISODE OF SOB. NO CO N/V. HEMODIALYSIS WAS COMPLETED AT 2120 W/ 3 L OUTPUT. DRESSING TO AV SHUNT DRY AND INTACT. PT HAD BM X1 THIS SHIFT. HL TO RT HAND INTACT AND PATENT. ALL NEEDS ATTENDED TO.
[2018-09-11 05:57] VITALS: BP 138/59
--- NOTE | 2018-09-11 06:03 | NUR ---
PT C/O VOMITING SAYING SHE THROWS UP EVERYTIME SHE DRINKS WATER OR JUICE. PT MEDICATED W/ ZOFRAN 4 MG IV FOR N/V. PT ADVISED NOT TO DRINK TOO MUCH IF SHE FEELS LIKE VOMITING.
--- NOTE | 2018-09-11 06:30 | NUR ---
PT VERBALIZED SHE FEELS BETTER AFTER ZOFRAN WAS GIVEN. NO N/V AT THIS TIME.
[2018-09-11 06:42] LABS: BASOPHIL % 0.6 % (0-2); PLATELET COUNT 235 x10^3mcL (130-400); RED CELL DISTRIBUTION WIDTH 13.8 % (11.5-14.5)
[2018-09-11 06:55] LABS: CALCIUM 7.9 mg/dL (8.5-10.1); CARBON DIOXIDE 30.5 mmol/L (21-32); CHLORIDE SERUM 98 mmol/L (98-107); GLUCOSE SERUM 119 mg/dL (74-106); PHOSPHOROUS 3.7 mg/dL (2.5-4.9); POTASSIUM SERUM 3.6 mmol/L (3.5-5.1); SODIUM SERUM 138 mmol/L (136-145)
[2018-09-11 06:56] LABS: CREATININE SERUM 5.2 mg/dL (0.6-1.0)
--- NOTE | 2018-09-11 07:45 | NUR ---
RECEIVED PT IN BED. ASSESSED AND DOCUMENTED. DENIES ANY PAIN. PT IS SLEEPING THIS TIME. SAFTEY PRECAUTIONS ARE IN PLACE. WILL MONITOR.
--- NOTE | 2018-09-11 10:00 | NUR ---
INFORMED ABOUT PT'S RHYTHM SR WITH PVC'S. ALSO INFORMED ABOUT PT BP 117/54, HE SAID TO HOLD ISOSORBIDE PO AND AMLODIPINE PO FOR NOW. INFORMED ABOUT PT STATED WHEN SHE STAND UP SHE FEEL DIZZINESS. WILL MONITOR. BED ALARM ON.
[2018-09-11 10:53] VITALS: BP 117/54
[2018-09-11 14:00] VITALS: BP 124/44
--- NOTE | 2018-09-11 14:00 | NUR ---
PT RESTING IN BED COMFORTABLY. DENIES ANY PAIN. STABLE. FAMILY AT BEDSIDE.
[2018-09-11 17:00] VITALS: BP 126/57
--- NOTE | 2018-09-11 19:18 | NUR ---
PT RESTING IN BED COMFORTABLY. DENIES PAIN. STABLE. GAVE REPORT TO TOP LIFT SCOURER NURSE.
--- NOTE | 2018-09-11 19:20 | NUR ---
RECEIVED PT IN BED AWAKE, ALERT,ORIENTED. SHE HAS NO C/O DIZZINESS OR HEADACHE AT THIS TIME. NO SOB ON ROOM AIR. NO C/O N/V. AV FISTULA TO LT UPPER ARM W/ (+) BRUIT AND THRILL. NO PEDAL EDEMA NOTED. W/ HL TO RT HAND INTACT. CALL LIGHT W/IN REACH.
[2018-09-11 20:49] VITALS: BP 132/66
--- NOTE | 2018-09-12 00:16 | NUR ---
PT AWAKE AND TRYING TO GO TO SLEEP. SHE REMAINS ORIENTED X4. SHE HAS NO C/O DISCOMFORT AT THIS TIME.
--- NOTE | 2018-09-12 05:05 | NUR ---
PT SLEPT AT LONG INTERVALS. SHE REMAINS ALERT AND ORIENTED X4. SHE HAD NO C/O PAIN. NO EPISODE OF N/V. PT FOR HEMODIALYSIS TODAY ORDERED. HL TO RT HAND INTACT. ALL NEEDS ATTENDED TO.
[2018-09-12 06:02] VITALS: BP 130/58
[2018-09-12 06:24] LABS: CALCIUM 7.2 mg/dL (8.5-10.1); CHLORIDE SERUM 97 mmol/L (98-107); GLUCOSE SERUM 131 mg/dL (74-106); MAGNESIUM 2.1 mg/dL (1.8-2.4); PHOSPHOROUS 5.2 mg/dL (2.5-4.9); POTASSIUM SERUM 3.7 mmol/L (3.5-5.1); SODIUM SERUM 137 mmol/L (136-145)
[2018-09-12 06:27] LABS: CREATININE SERUM 7.1 mg/dL (0.6-1.0)
[2018-09-12 06:42] LABS: BASOPHIL % 0.7 % (0-2); PLATELET COUNT 240 x10^3mcL (130-400); RED CELL DISTRIBUTION WIDTH 14.3 % (11.5-14.5)
--- NOTE | 2018-09-12 08:00 | NUR ---
ALERT AND ORIENTED. BREATHING FREELY ONRA. DENIES ANY PAIN. BRUIT TO LEFT ARM HD AV SHUNT. HD ORDERED FOR TODAY. SL TO RT HAND. ORDER FOR P.T. GENERALIZED WEAKNESS. USES WALKER AT HOME. TELE 8 NSR W PAC'S.CALL LIGHT WITHIN REACH.
[2018-09-12 08:50] VITALS: BP 123/56
--- NOTE | 2018-09-12 11:55 | NUR ---
Initial Nutrition Assessment Dx: Hypernatremia, HD PMHx: HTN, ESRD on HD (MWF), HLD, DM, DVT PSHx: CABG x3 Labs: (09/12) Na 137, K 3.7, BG 131H, BUN 34H, Cr 7.1H, Ca 7.2L, A1c 6.8H, WBC 5.1, H/H 10.4L/30L Meds: Antivert, Aspirin, Colace, D50%, Indur-ER, Lipitor, Morphine, Nephro-Artemio, Neurontin, Nitrostat, Harbert, Norvasc, Prozac, Ranexa, Tylenol, Zofran Diet: Renal PO Intake: (09/12) B: 75% (09/11) L: 85% D: 90% Ht: 60" (152 cm) Wt: 140# (63.7 kg) BMI: 27.4 (Overweight) IBW: 100# %IBW: 140% AJBW: 110# (50 kg) UBW: 140-145# Age: 78 y/o elderly female Food Allergies: NKFA Skin: [place] [facility] [place] Shine: 20 Edema: None GI: Last BM x 1 (09/11) HD output: 3000 mL (09/10) Per H&P, pt. admitted with altered mental status and hyperkalemia associated with behavioral changes and episodes of vomiting and dizziness x 1 day. Normally able to ambulate without assistance with a walker, but unable to d/t weakness. Plans for D/C after HD today, as pt. is medically stable at this time. Pt. endorses improved appetite without N/V at this time. Reports she had previous difficulty swallowing and required solid foods to be immersed in soups prior to admission, but is tolerating current diet order, texture, and liquid consistency without difficulty chewing or swallowing noted. T: Unable to ingest diet for age Problem with: No c/o N/V/D/C Problems with: Chewing: N Swallowing: N Current appetite: Excellent Recent wt change: None %wt change: N/A Vitamin/Supplement use: Nephro-Artemio QD Special diet at home: Renal diet Physical activity: Ambulates with walker at baseline Education: Informed pt. of renal diet and associated restrictions; declined diet education at this time stating she received multiple handouts on the renal diet from her dialysis center RD. Verbalizes she understands she needs to restrict high Na, K, and P food items to manage her electrolyte levels. Estimated Nutritional Needs Based on actual body weight 50 kg: Energy: 4941-1708 kcal/d (30-35 kcal/kg-geriatric maintenance/HD) Protein: 60-70 g/d (1.2-1.4 g/kg)-geriatric/HD maintenance and preservation of lean body mass Fluid: 9825-6401 ml/d (1 ml/kcal-fluid balance) or per doctor Nutrition Diagnosis 1. Increased nutrient needs r/t renal dysfunction AEB pt. receiving maintenance HD 3x weekly for hx ESRD. Intervention/RD recommendations 1. Continue renal diet as ordered and as tolerated, 2. Add Nepro QD for increased nutrient needs, which will add an additional 425 calories and 20 g protein. Monitor/Evaluate Goal: PO intake at least 75% of estimated needs Monitor: PO intake, Labs, GI function, diet tolerance, weights F/U in 3-5 days as moderate risk (09/15-09/17)
--- NOTE | 2018-09-12 11:56 | NUR ---
Intervention/RD recommendations 1. Continue renal diet as ordered and as tolerated. 2. Add Nepro QD for increased nutrient needs, which will add an additional 425 calories and 20 g protein.
[2018-09-12 12:55] VITALS: BP 143/52
--- NOTE | 2018-09-12 16:19 | NUR ---
DIALYSIS NURSE TO START HEMODIALYSIS.
[2018-09-12 17:00] VITALS: BP 127/56
[2018-09-12 17:14] VITALS: BP 143/52
--- NOTE | 2018-09-12 19:10 | NUR ---
RESTING COMFORTABLY. HD ALMOST COMPLETED. PT WILL BE GOING HOME AFTER DIALYSIS COMPLETED. ENDORSED TO NOC SHIFT. PACKET ON CHARGE NURSE DESK. ALERT AND ORIENTED. NO C/O PAIN THIS SHIFT.
--- NOTE | 2018-09-12 19:33 | NUR ---
RECEIVED PT STILL ON DIALYSIS.WILL BE DISCHARGE AFTER DIALYSIS ORDERED.PT A/O.DENIES CHESTPAIN.ON NO DISTRESS.BP 150/61 MMHG,HR 73.WILL CONTINUE TO MONITOR.
--- NOTE | 2018-09-12 20:05 | NUR ---
COMPLETED DIALYSIS 2 L OUTPUT.BP 122/99 MMHG,HR 78.WILL DISCHARGE PT ORDERED.
--- NOTE | 2018-09-12 20:41 | NUR ---
PT DISCHARGE HOME WITH SISTER.ALL BELONGINGS SENT WITH PT.DISCHARGE INSTRUCTIONS GIVEN.ALL QUESTIONS ANSWERED.D/C IV WITH NEEDLE INTACT.D/C MONITOR.WHEELED DOWN BY BUSINESS PLANNING ANALYST.IN NO DISTRESS.
== END 2018-09-12 20:45 | disposition home or self-care (01) | DRG 640 ==
LOC: ED 11:20 → DU 13:35
PROVIDERS: Emergency Medicine; Family Medicine; Internal Medicine Nephrology; ADMIT Internal Medicine
DX: E87.5 Hyperkalemia (principal); N18.6 End stage renal disease; G93.41 Metabolic encephalopathy; N17.0 Acute kidney failure with tubular necrosis; I12.0 Hypertensive chronic kidney disease with stage 5 chronic kidney disease or end stage renal disease; E11.22 Type 2 diabetes mellitus with diabetic chronic kidney disease; D63.1 Anemia in chronic kidney disease; E83.41 Hypermagnesemia; E87.1 Hypo-osmolality and hyponatremia; E78.5 Hyperlipidemia, unspecified; I25.10 Atherosclerotic heart disease of native coronary artery without angina pectoris; Z99.2 Dependence on renal dialysis; Z68.27 Body mass index [BMI] 27.0-27.9, adult; Z95.1 Presence of aortocoronary bypass graft; Z86.718 Personal history of other venous thrombosis and embolism; Z79.84 Long term (current) use of oral hypoglycemic drugs
CPT/HCPCS: 83880; 97112-GP; 97116-GP; 97530-GP; J1815; J2405; J3490; J7030; J8597; Q0092

== ENCOUNTER 2019-10-09 14:34 | Inpatient (IN) | payer OTHER ==
[~2019-10-09] VITALS: Ht 152.4 cm; Wt 58.5 kg
[2019-10-09 14:42] VITALS: Ht 152.4 cm; Wt 58.5 kg
[2019-10-09 18:45] LABS: BASOPHIL % 0.2 % (0-2); PLATELET COUNT 179 x10^3mcL (130-400); RED CELL DISTRIBUTION WIDTH 13.1 % (11.5-14.5)
[2019-10-09 18:59] LABS: CALCIUM 8.6 mg/dL (8.5-10.1); CARBON DIOXIDE 30.3 mmol/L (21-32); CHLORIDE SERUM 99 mmol/L (98-107); CREATININE SERUM 2.3 mg/dL (0.6-1.0); GLUCOSE SERUM 118 mg/dL (74-106); POTASSIUM SERUM 3.4 mmol/L (3.5-5.1); SODIUM SERUM 136 mmol/L (136-145)
[2019-10-09 19:04] LABS: ALBUMIN 3.3 g/dL (3.4-5.0); ALKALINE PHOSPHATASE 103 U/L (46-116); ALT/SGPT 12 U/L (14-59); AST/SGOT 13 U/L (15-37); BILIRUBIN TOTAL 0.5 mg/dL (0.20-1.00); TOTAL PROTEIN, SERUM 7.6 g/dL (6.4-8.2)
[2019-10-09 20:56] LABS: FREE T4 1.27 ng/dL (0.76-1.46); FREE THYROXINE INDEX 2.5 ug/dL (1.4-4.5); T3 TOTAL 0.93 ng/mL; T4(THYROXINE) 8.1 ug/dL (4.7-13.3)
[2019-10-09 21:15] LABS: CHOLESTEROL/HDL RATIO 2.3
[2019-10-09 22:26] VITALS: BP 209/73
[2019-10-10] VITALS (7 sets, daily range): BP systolic 138–184; BP diastolic 44–78
[2019-10-10] MEDS ORDERED: ELIQUIS2.5 MG PO (00:01)
[2019-10-10 06:08] LABS: BASOPHIL % 0.5 % (0-2); PLATELET COUNT 167 x10^3mcL (130-400); RED CELL DISTRIBUTION WIDTH 13.4 % (11.5-14.5)
[2019-10-10 06:57] LABS: CALCIUM 8.4 mg/dL (8.5-10.1); CHLORIDE SERUM 101 mmol/L (98-107); CREATININE SERUM 3.2 mg/dL (0.6-1.0); GLUCOSE SERUM 102 mg/dL (74-106); POTASSIUM SERUM 3.6 mmol/L (3.5-5.1); SODIUM SERUM 137 mmol/L (136-145)
[2019-10-11 05:43] VITALS: BP 149/56
[2019-10-11 06:49] LABS: BASOPHIL % 0.6 % (0-2); PLATELET COUNT 175 x10^3mcL (130-400); RED CELL DISTRIBUTION WIDTH 13.8 % (11.5-14.5)
[2019-10-11 07:18] LABS: CARBON DIOXIDE 27.6 mmol/L (21-32); CHLORIDE SERUM 100 mmol/L (98-107); GLUCOSE SERUM 105 mg/dL (74-106); MAGNESIUM 2.2 mg/dL (1.8-2.4); PHOSPHOROUS 3.7 mg/dL (2.5-4.9); POTASSIUM SERUM 4.1 mmol/L (3.5-5.1); SODIUM SERUM 136 mmol/L (136-145)
[2019-10-11 07:23] VITALS: BP 144/53
[2019-10-11 07:30] LABS: CREATININE SERUM 4.9 mg/dL (0.6-1.0)
[2019-10-11 11:44] VITALS: BP 133/47
[2019-10-11 16:17] VITALS: BP 143/55
[2019-10-11 20:40] VITALS: BP 148/48
[2019-10-12 05:10] VITALS: BP 143/53
[2019-10-12 06:30] LABS: BASOPHIL % 0.4 % (0-2); PLATELET COUNT 169 x10^3mcL (130-400); RED CELL DISTRIBUTION WIDTH 14.1 % (11.5-14.5)
[2019-10-12 06:46] LABS: CALCIUM 7.7 mg/dL (8.5-10.1); CARBON DIOXIDE 27.2 mmol/L (21-32); CHLORIDE SERUM 103 mmol/L (98-107); CREATININE SERUM 3.4 mg/dL (0.6-1.0); GLUCOSE SERUM 115 mg/dL (74-106); MAGNESIUM 1.7 mg/dL (1.8-2.4); POTASSIUM SERUM 4.1 mmol/L (3.5-5.1); SODIUM SERUM 137 mmol/L (136-145)
[2019-10-12 07:40] VITALS: BP 147/53
[2019-10-12 16:59] VITALS: BP 162/66
[2019-10-12 22:32] VITALS: BP 163/55
[2019-10-12 22:45] VITALS: BP 142/52
[2019-10-13 06:19] VITALS: BP 147/50
[2019-10-13 06:21] LABS: BASOPHIL % 0.3 % (0-2); PLATELET COUNT 205 x10^3mcL (130-400); RED CELL DISTRIBUTION WIDTH 13.6 % (11.5-14.5)
[2019-10-13 07:19] LABS: CALCIUM 8.2 mg/dL (8.5-10.1); CARBON DIOXIDE 24.4 mmol/L (21-32); CHLORIDE SERUM 100 mmol/L (98-107); GLUCOSE SERUM 106 mg/dL (74-106); POTASSIUM SERUM 4.5 mmol/L (3.5-5.1); SODIUM SERUM 135 mmol/L (136-145)
[2019-10-13 08:01] VITALS: BP 126/44
[2019-10-13 12:15] VITALS: BP 97/37
[2019-10-13 16:20] VITALS: BP 116/44
[2019-10-13 19:48] VITALS: BP 123/50
[2019-10-14 04:24] VITALS: BP 143/47
[2019-10-14 06:46] LABS: CALCIUM 7.7 mg/dL (8.5-10.1); CHLORIDE SERUM 98 mmol/L (98-107); GLUCOSE SERUM 129 mg/dL (74-106); POTASSIUM SERUM 4.8 mmol/L (3.5-5.1); SODIUM SERUM 133 mmol/L (136-145)
[2019-10-14 06:57] LABS: CREATININE SERUM 6.2 mg/dL (0.6-1.0)
[2019-10-14 07:33] LABS: BASOPHIL % 0.4 % (0-2); PLATELET COUNT 165 x10^3mcL (130-400); RED CELL DISTRIBUTION WIDTH 13.8 % (11.5-14.5)
[2019-10-14 09:06] VITALS: BP 119/43
[2019-10-14 17:15] VITALS: BP 144/67
[2019-10-14 20:32] VITALS: BP 154/43
[2019-10-15 05:27] VITALS: BP 159/53
[2019-10-15 07:50] VITALS: BP 148/45
[2019-10-15 08:17] LABS: BASOPHIL % 0.4 % (0-2); PLATELET COUNT 183 x10^3mcL (130-400); RED CELL DISTRIBUTION WIDTH 13.9 % (11.5-14.5)
[2019-10-15 08:24] LABS: CALCIUM 7.7 mg/dL (8.5-10.1); CARBON DIOXIDE 30.1 mmol/L (21-32); CHLORIDE SERUM 100 mmol/L (98-107); CREATININE SERUM 3.9 mg/dL (0.6-1.0); GLUCOSE SERUM 123 mg/dL (74-106); SODIUM SERUM 137 mmol/L (136-145)
[2019-10-15 08:51] VITALS: BP 148/45
[2019-10-15 12:06] VITALS: BP 128/42
[2019-10-15] MEDS ORDERED: KEFLEX250 M1 PO (13:09)
[2019-10-15] MEDS ORDERED: ULT50 PO (13:11)
== END 2019-10-15 18:40 | disposition home health service (06) | DRG 492 ==
LOC: ED 14:34 → MU 20:05 → DU 20:05 → MU 22:16 → DU 10-10 12:10 → MU 10-13 13:52
PROVIDERS: Internal Medicine; Orthopaedic Surgery; Specialist; ADMIT Family Medicine
PROC: 5A1D70Z Performance of Urinary Filtration, Intermittent, Less than 6 Hours Per Day (ICD-10-PCS; 2019-10-11)
PROC: 0QSJXZZ Reposition Right Fibula, External Approach (ICD-10-PCS; 2019-10-12)
PROC: 0QSG06Z Reposition Right Tibia with Intramedullary Internal Fixation Device, Open Approach (ICD-10-PCS; principal; 2019-10-12 11:00)
PROC: 5A1D70Z Performance of Urinary Filtration, Intermittent, Less than 6 Hours Per Day (ICD-10-PCS; 2019-10-14)
DX: S82.391A Other fracture of lower end of right tibia, initial encounter for closed fracture (principal); N18.6 End stage renal disease; I69.351 Hemiplegia and hemiparesis following cerebral infarction affecting right dominant side; I12.0 Hypertensive chronic kidney disease with stage 5 chronic kidney disease or end stage renal disease; S82.831A Other fracture of upper and lower end of right fibula, initial encounter for closed fracture; E11.22 Type 2 diabetes mellitus with diabetic chronic kidney disease; E11.65 Type 2 diabetes mellitus with hyperglycemia; W05.0XXA Fall from non-moving wheelchair, initial encounter; E83.39 Other disorders of phosphorus metabolism; E83.51 Hypocalcemia; D64.9 Anemia, unspecified; E78.00 Pure hypercholesterolemia, unspecified; E78.5 Hyperlipidemia, unspecified; Z99.2 Dependence on renal dialysis; Z79.84 Long term (current) use of oral hypoglycemic drugs; Z95.1 Presence of aortocoronary bypass graft; Z86.718 Personal history of other venous thrombosis and embolism; Z91.81 History of falling; Y93.89 Activity, other specified; Y92.014 Private driveway to single-family (private) house as the place of occurrence of the external cause; I25.2 Old myocardial infarction; Z98.42 Cataract extraction status, left eye; Z98.41 Cataract extraction status, right eye; Z79.82 Long term (current) use of aspirin; Z79.899 Other long term (current) drug therapy; Z83.3 Family history of diabetes mellitus; Z82.49 Family history of ischemic heart disease and other diseases of the circulatory system; Y99.9 Unspecified external cause status
CPT/HCPCS: 36600; 82962; 84439; 97110-GP; G0378; J0360; J0690; J1815; J2405; J3010; J3370; J3490; J7030; Q0092